=== PATIENT | female | born 1955 | race Caucasian/White ===

== ENCOUNTER 2024-03-02 21:02 | Emergency (ER) | payer OTHER ==
[~2024-03-02] VITALS: Ht 165.1 cm; Wt 67.7 kg
[2024-03-02] MEDS: BUDESONIDE 0.25MG/2ML NEB HHN ONE (21:43)
[2024-03-02 21:44] VITALS: PULSE 80; RESP 20; O2SAT 97
[2024-03-02] MEDS: ALBUTEROL (0.083%) 2.5MG/3ML NEB HHN ONE (21:44)
[2024-03-02] MEDS: IPRATROPIUM/ALBUTEROL 0.5-3(2.5)MG/3ML NEB HHN ONE (21:44)
[2024-03-03] VITALS: BP 148/82; PULSE 80; RESP 20; TEMP 98.6
== END 2024-03-03 00:06 | disposition home or self-care (01) ==
LOC: ER 21:15
DX: J45.901 Unspecified asthma with (acute) exacerbation (principal)
CPT/HCPCS: 94644; 99285; Z7610 ×4; J7626

== ENCOUNTER 2024-10-29 16:58 | Inpatient (IN) | payer OTHER, MEDICARE ==
[~2024-10-29] VITALS: Ht 170.2 cm; Wt 71.7 kg
[2024-10-29 17:58] LABS: BASOPHILS % 1.4 % (0.0-2.0); EOSINOPHILS % 3.9 % (0.0-5.0); HEMATOCRIT. 36.8 % (36.0-48.0); HEMOGLOBIN. 12.5 g/dL (12.0-16.0); LYMPHOCYTES % 23.8 % (20.0-50.0); MEAN CORPUSCULAR HEMOGLOBIN 31.9 pg (28.0-32.0); MEAN CORPUSCULAR HGB CONC 33.9 g/dL (31.0-37.0); MEAN PLATELET VOLUME 7.8 fl (7.4-10.4); NEUTROPHILS % 64.9 % (40.0-76.0); PLATELET 275 x1000/uL (130-400); RED BLOOD CELL COUNT 3.91 mill/uL (4.2-5.4); RED CELL DISTRIBUTION WIDTH 12.7 % (11.6-14.6); WHITE BLOOD COUNT 7.1 x1000/uL (4.5-11.0)
[2024-10-29 18:06] LABS: PROTHROMBIN TIME 10.9 sec (9.6-11.0)
[2024-10-29 18:07] LABS: CHLORIDE 102 mEq/L (98-107); POTASSIUM 3.7 mEq/L (3.5-5.1); SODIUM 141 mEq/L (136-145)
[2024-10-29 18:08] LABS: CALCIUM 9.1 mg/dL (8.7-10.4); CARBON DIOXIDE 30 mEq/L (21-32)
[2024-10-29 18:13] LABS: CREATININE 0.7 mg/dL (0.6-1.0); GLUCOSE 132 mg/dL (70-105); UREA NITROGEN BLOOD 8 mg/dL (9-23)
[2024-10-29 18:14] LABS: LACTIC ACID 2.4 mmol/L (0.4-2.0)
[2024-10-29 18:16] LABS: TROPONIN I HIGH SENSITIVITY < 4 ng/L (3.0-34)
[2024-10-29] MEDS: SODIUM CHLORIDE 0.9% 1,000 ML IV ONE ×2 (19:04→20:18)
[2024-10-29 22:21] LABS: CLARITY URINE CLEAR (CLEAR); COLOR URINE YELLOW (YELLOW); GLUCOSE URINE NEGATIVE (NEGATIVE); KETONES URINE NEGATIVE (NEGATIVE); LEUKOCYTE ESTERASE URINE 3+ (NEGATIVE); NITRITE URINE NEGATIVE (NEGATIVE); OCCULT BLOOD URINE TRACE (NEGATIVE); PROTEIN URINE NEGATIVE (NEGATIVE); SPECIFIC GRAVITY URINE 1.004 (1.005-1.030)
[2024-10-29 22:40] LABS: BACTERIA URINE 3+; SQUAMOUS EPITHELIAL CELL URINE 1+ /lpf (RARE/1+); WBC URINE 15-25 /hpf (0-2)
[2024-10-29] MEDS: CEFTRIAXONE 1GM/50ML 50 ML IV ONE (23:11)
[2024-10-29] MEDS: IOHEXOL-350 100 ML BOTTLE ONE (23:32)
[2024-10-30 00:15] VITALS: BP 143/59; PULSE 60; RESP 18; TEMP 36.4
[2024-10-30] MEDS ORDERED: DEXTROSE 50% WATER 50ML SYRINGE IV PRN (05:15)
[2024-10-30 08:00] VITALS: BP 125/46; PULSE 56; RESP 16; TEMP 36.8; O2SAT 97
[2024-10-30 12:00] VITALS: BP_SYST 113; BP_SYST 127; BP_DIAS 46; BP_DIAS 50; PULSE 58; RESP 16; TEMP 36.8; O2SAT 97
[2024-10-30] MEDS: ASPIRIN 81MG TABLET PO SCH (14:28)
[2024-10-30] MEDS ORDERED: ONDANSETRON HCL 4MG/2ML INJ IV PRN (14:30)
[2024-10-30] MEDS ORDERED: ACETAMINOPHEN 650MG/20.3ML UDC PO PRN (14:30)
[2024-10-30 16:00] VITALS: BP 132/49; PULSE 58; RESP 16; TEMP 37.2; O2SAT 99
[2024-10-30 20:00] VITALS: BP 144/52; PULSE 59; RESP 17; TEMP 36.5; O2SAT 99
[2024-10-30] MEDS: ATORVASTATIN CALCIUM 20MG TABLET PO SCH (21:00)
[2024-10-30] MEDS: CEFTRIAXONE 1GM/50ML 50 ML IV NR (22:41)
[2024-10-30 23:14] VITALS: BP 127/59; PULSE 74; TEMP 96.7; O2SAT 97
== END 2024-10-31 00:15 | disposition short-term general hospital (02) | DRG 392 ==
LOC: ER 16:58 → EDBD 16:58 → 5WST 22:39
PROVIDERS: ADMIT Internal Medicine; ATTEND Internal Medicine
DX: K44.9 Diaphragmatic hernia without obstruction or gangrene (principal); E87.20 Acidosis, unspecified; E11.9 Type 2 diabetes mellitus without complications; I10 Essential (primary) hypertension; J45.909 Unspecified asthma, uncomplicated; J84.10 Pulmonary fibrosis, unspecified; Z20.822 Contact with and (suspected) exposure to COVID-19; I95.9 Hypotension, unspecified; R07.89 Other chest pain; Z90.49 Acquired absence of other specified parts of digestive tract; Z88.8 Allergy status to other drugs, medicaments and biological substances
CPT/HCPCS: 36415; 71045; 71275; 80048; 81003; 82962; 83605; 84484; 85025; 87077; 87186; 87426; 93005; 99291; A4606; J0696; J7030; Q9967